=== PATIENT | male | born 2005 | race Hispanic/Latino ===

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

== ENCOUNTER 2025-06-05 17:57 | Emergency (ER) | payer SELFPAY ==
[2025-06-05] MEDS ORDERED: Ibuprofen 800 MG TAB ONE (18:16)
[2025-06-05] MEDS ORDERED: Acetaminophen 500 MG TAB ONE (18:43)
[2025-06-05] MEDS ORDERED: Oseltamivir 75 MG CAP ONE (19:02)
[2025-06-05] MEDS ORDERED: Ondansetron PF 4 MG/2 ML Vial ONE (19:02)
== END 2025-06-05 20:00 | disposition home or self-care (01) ==
LOC: BURERS 17:57
DX: J10.1 Influenza due to other identified influenza virus with other respiratory manifestations (principal); F17.210 Nicotine dependence, cigarettes, uncomplicated
CPT/HCPCS: 87428; 96361; 96374; J2405